=== PATIENT | male | born 1970 | race Caucasian/White ===

== ENCOUNTER → 2019-11-29 | Emergency (ER) | payer BC ==
[~2019-11-29] VITALS: Ht 187.9 cm; Wt 131.5 kg
[~2019-11-29] MED LIST: ALBUTEROL0.09 MG/A2 IH; DAYPRO600 M1 PO; PREDNISONE10 MG PO; ROBAXIN750 MG PO; VIBRAMYCIN100 MG PO; VICODIN ES 7501 TAB PO
[2019-11-29 22:14] VITALS: BP 159/90
== END ==
LOC: ED 22:08
DX: R10.9 Unspecified abdominal pain (principal); Z87.442 Personal history of urinary calculi; Z87.891 Personal history of nicotine dependence

== ENCOUNTER → 2020-08-24 | Outpatient (CLI) | payer BC | END | disposition home or self-care (01) | LOC: COVID19 08:14 | PROVIDERS: ATTEND Internal Medicine | DX: U07.1 COVID-19 (principal) ==

== ENCOUNTER 2022-06-19 13:02 | Emergency (ER) | payer BC ==
[~2022-06-19] VITALS: Ht 187.9 cm; Wt 136.1 kg
[2022-06-19 13:09] VITALS: BP 175/95
[2022-06-19] MEDS ORDERED: CYCLOBENZAPRINE10 MG PO (15:25)
[2022-06-19] MEDS ORDERED: MEDROL DOSEPAK4 MG PO (15:25)
== END 2022-06-19 15:56 | disposition home or self-care (01) ==
LOC: ED 13:02
DX: M54.12 Radiculopathy, cervical region (principal); Z90.89 Acquired absence of other organs

== ENCOUNTER 2024-08-13 03:11 | Observation (INO) | payer OTHER ==
[2024-08-13] VITALS (8 sets, daily range): BP systolic 139–163; BP diastolic 81–97
[~2024-08-13] VITALS: Ht 188 cm; Wt 142.9 kg
[~2024-08-13 03:11] MED LIST changes: +CYCLOBENZAPRINE10 MG PO; +MEDROL DOSEPAK4 MG PO
[2024-08-13] MEDS ORDERED: Ondansetron Hydrochloride 4 MG/2 ML VIAL IV ONE (04:10)
[2024-08-13] MEDS ORDERED: SODIUM CHLORIDE 0.9% 1,000 ML IV ONE (04:10)
[2024-08-13] MEDS ORDERED: HYDROmorphONE Hydrochloride 0.5 MG/0.5 ML SYRINGE IV ONE (04:10)
[2024-08-13 04:21] LABS: BASO % 0.3 % (0.0-1.0); EOS # 0.1 10*3/uL (0.0-0.4); EOS % 0.9 % (1.0-4.0); HEMATOCRIT 46.4 % (42.0-52.0); MEAN CELL VOLUME 86.2 fl (80.0-94.0); MEAN CORPUSCULAR HGB 28.3 pg (27.0-31.0); MEAN CORPUSCULAR HGB CONC 32.8 g/dl (33.0-37.0); MEAN PLATELET VOLUME 9.2 fl (9.6-12.3); MONO # 0.7 10*3/uL (0.1-1.0); MONO % 5.7 % (3.0-9.0); NEUT % 82.9 % (47.0-73.0); PLATELET COUNT AUTOMATED 310 10*3/uL (130-400); RED BLOOD COUNT 5.38 10*6/uL (4.50-5.90); RED CELL DISTRI WIDTH 12.5 % (0-14.5)
[2024-08-13 04:47] LABS: BUN 11 mg/dl (9-23); CHLORIDE 106 mmol/L (98-107); POTASSIUM 4.2 mmol/L (3.4-5.1)
[2024-08-13] MEDS ORDERED: Ketorolac Tromethamine 30 MG/ML VIAL IV ONE (05:35)
[2024-08-13] MEDS ORDERED: Metoclopramide Hydrochloride 10 MG/2 ML VIAL IV ONE (05:35)
[2024-08-13 06:12] LABS: BILIRUBIN Negative (Negative); BLOOD Negative (Negative); CLARITY Clear (Clear); COLOR Yellow (Yellow); GLUCOSE Negative (Negative); KETONE Negative (Negative); LEUKO ESTERASE Negative (Negative); NITRITE Negative (Negative); SPECIFIC GRAVITY 1.025 (1.001-1.030)
[2024-08-13 06:29] LABS: RBC 0-2 rbc/hpf (0-2); WBC 0-2 wbc/hpf (0-5)
[2024-08-13] MEDS ORDERED: Piperacillin Sodium/Tazobact 50 ML IV ONE (06:55)
[2024-08-13] MEDS ORDERED: Magnesium Hydroxide 30 ML UDC PO PRN (11:40)
[2024-08-13] MEDS ORDERED: Ondansetron Hydrochloride 4 MG/2 ML VIAL IV PRN (11:40)
[2024-08-13] MEDS ORDERED: Acetaminophen/Hydrocodone 5 MG/325 MG TABLET PO PRN (11:40)
[2024-08-13] MEDS ORDERED: ACETAMINOPHEN 325 MG TAB PO PRN (11:40)
[2024-08-13] MEDS ORDERED: BISACODYL 5 MG TAB PO PRN (11:40)
[2024-08-13] MEDS ORDERED: BISACODYL 10 MG SUPP R PRN (11:40)
[2024-08-13] MEDS ORDERED: ACETAMINOPHEN 650 MG SUPP R PRN (11:40)
[2024-08-13] MEDS ORDERED: MORPHINE Sulfate 2 MG/ML SYR IV PRN (11:40)
[2024-08-13] MEDS ORDERED: BUPIVACAINE 0.5% 10 ML VIAL ONE ×2 (13:44→13:46)
[2024-08-13] MEDS ORDERED: Lactated Ringer's Solution 1,000 ML IV ONE (13:56)
[2024-08-13] MEDS ORDERED: ACETAMINOPHEN 100 ML IV ONE (14:56)
[2024-08-13] MEDS ORDERED: Ondansetron4 MG PO (14:59)
[2024-08-13] MEDS ORDERED: PERCOCET 5-3251 EACH PO (14:59)
[2024-08-13] MEDS ORDERED: Albuterol Sulfate 1.25 MG/3 ML VIAL NEB ONE (15:35)
[2024-08-13] MEDS ORDERED: Albuterol Sulfate 2.5 MG/3 ML VIAL NEB ONE (16:00)
[2024-08-13] MEDS ORDERED: LISINOPRIL40 MG PO (16:53)
[2024-08-13] MEDS ORDERED: ATORVASTATIN CA80 M1 PO (16:54)
[2024-08-13] MEDS ORDERED: VENT7GM INH (16:55)
[2024-08-13] MEDS ORDERED: CYMBALTA30 MG PO (16:55)
[2024-08-14] MEDS ORDERED: Ketorolac Tromethamine 30 MG/ML VIAL IV ONE (07:28)
[2024-08-14] MEDS ORDERED: Lidocaine Hydrochloride 2% 5 ML SDV IV ONE (07:28)
[2024-08-14] MEDS ORDERED: ROCURONIUM BROMIDE 50 MG/5 ML SYRINGE IV ONE (07:28)
[2024-08-14] MEDS ORDERED: Ketamine Hydrochloride 500 MG/10 ML VIAL IV ONE (07:28)
[2024-08-14] MEDS ORDERED: MAGNESIUM SULFATE 1 GM/2 ML VIAL IV ONE (07:28)
[2024-08-14] MEDS ORDERED: SEVOFLURANE 250 ML BOT INH ONE (07:28)
[2024-08-14] MEDS ORDERED: PROPOFOL 200 MG/20 ML VIAL IV ONE (07:28)
[2024-08-14] MEDS ORDERED: fentaNYL CITRATE 100 MCG/2 ML VIAL IV ONE (07:28)
[2024-08-14] MEDS ORDERED: Dexamethasone Sodium Phospha 4 MG/ML VIAL IV ONE (07:28)
[2024-08-14] MEDS ORDERED: Ondansetron Hydrochloride 4 MG/2 ML VIAL IV ONE (07:28)
[2024-08-14] MEDS ORDERED: SUGAMMADEX SODIUM 200 MG/2 ML VIAL IV ONE (07:28)
== END 2024-08-13 18:00 | disposition home or self-care (01) ==
LOC: ED 03:11 → EDHOLD 07:07 → 4E 16:15
PROVIDERS: Emergency Medicine; ADMIT Internal Medicine; ATTEND Internal Medicine
DX: K35.80 Unspecified acute appendicitis (principal); I10 Essential (primary) hypertension; E78.5 Hyperlipidemia, unspecified; Z79.899 Other long term (current) drug therapy; Z98.890 Other specified postprocedural states